=== PATIENT | female | born 1970 | race Caucasian/White ===

== ENCOUNTER 2019-08-02 16:55 | Emergency (ER) | payer MEDICAID ==
[~2019-08-02] VITALS: Ht 165.1 cm; Wt 77.1 kg
[2019-08-02 17:02] VITALS: Ht 165.1 cm; Wt 77.1 kg
[2019-08-02 18:20] VITALS: BP 119/75
== END 2019-08-02 18:57 | disposition home or self-care (01) ==
LOC: ED 16:55
DX: J10.1 Influenza due to other identified influenza virus with other respiratory manifestations (principal); Z86.2 Personal history of diseases of the blood and blood-forming organs and certain disorders involving the immune mechanism
CPT/HCPCS: 87804; J1885